=== PATIENT | female | born 2000 | race Caucasian/White ===

== ENCOUNTER 2024-06-27 12:38 | Emergency (ER) | payer OTHER, SELFPAY ==
[2024-06-27 12:40] VITALS: BP 153/93
[2024-06-27 13:31] LABS: Hematocrit 38.1 % (37.0-47.0); Hemoglobin 12.6 g/dL (12.0-16.0); Mean Corp Hgb Conc. 33.1 g/dL (33.0-37.0); Mean Corpuscular Hgb 27.2 pg (27.0-31.0); Mean Corpuscular Volume 82.3 fL (81.0-99.0); Mean Platelet Volume 8.5 fL (7.4-10.4); Platelet Count 281 10^3/uL (130-400); Red Blood Cell Count 4.63 10^6/uL (4.20-5.40); White Blood Cell Count 9.8 10^3/uL (4.8-10.8)
--- NOTE | 2024-06-27 13:31 | ED.GENMED ---
History of Present Illness
General
Chief Complaint: Crisis Evaluation
Source: patient
Exam Limitations: none
Time Seen by Provider: 06/27/24 12:56
Nursing documentation reviewed up to this point in time: agreed with
History of Present Illness
History of Present Illness:
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
Seen by mobile crisis sent here for evaluation and admission to psychiatric hospital has been admitted previously denies drugs or alcohol
Past History
Past History
ED Past Medical History: Psychiatric
ED Past Surgical History: Other (Top surgery)
Social History
Tobacco: Non-smoker
Alcohol: None
Drug: None
Personal: Single
Living: with family
Employment: Employed
Review of Systems
Review of Systems
All Other Systems: Not applicable
Psychiatric: Reports depression, anxiety and suicidal; Denies hallucinations
Phy Exam
Physical Exam
Physical Exam:
Physical Exam
General: no apparent distress, not acutely ill
Neck: No jaundice
Heart: s1/s2 regular rate and rhythm, no murmur. equal radial pulses.
Lungs: no acute respiratory distress. clear bilaterally
Neuro: alert and oriented. no focal neurological deficits
Skin: no rash
Psychiatric: Cooperative admits to suicidal ideation
Extremities: no edema.
Course
Orders/Labs/Results
Orders:
Orders
06/27/24 12:46
1:1 Observation - Suicide/ Violent Behavior As Directed
06/27/24 13:10
Crisis Consult Routine
Reason for Consult: 201
Test Result ONCE
06/27/24 13:23
Acetaminophen Urgent
Alcohol Urgent
Complete Blood Count/With Diff Urgent
Comprehensive Metabolic Panel Urgent
HCG, Serum Qualitative Screen Urgent
Salicylate Urgent
06/27/24 14:08
Urine Drug Abuse Screen Urgent
Date Specimen was Collected: 06/27/24
Time Specimen was Collected: 14:04
Abnormal Lab Results
06/27/24
13:23
Glucose 105 H mg/dl
(70-99)
ALT 42 H U/L
(0-35)
Total Protein 8.4 H g/dl
(6.3-8.2)
Salicylates < 1.0 L mg/dl
(2.0-20.0)
Acetaminophen < 10 L ug/ml
(10-30)
06/27/24 13:23
06/27/24 13:23
Vital Signs
Initial and Last Documented VS:
Initial Vital Signs
Temp Pulse Resp BP Pulse Ox
97.8 F 95 18 153/93 98
06/27/24 12:40 06/27/24 12:40 06/27/24 12:40 06/27/24 12:40 06/27/24 12:40
Last Documented Vital Signs
Temp Pulse Resp BP Pulse Ox
97.8 F 95 18 153/93 98
06/27/24 12:40 06/27/24 12:40 06/27/24 12:40 06/27/24 12:40 06/27/24 12:40
MDM/Problems Addressed
Differential Diagnosis Includes:
Suicidal ideation depression anxiety
MDM/Problems Addressed:
Suicidal ideation
Chronic conditions affecting care: Psychiatric illness
Acute Exacerbation and/or Progression of Chronic Illness: Psychiatric illness
*Pulse Oximetry
Patient hypoxic: no
*Critical Care Note
Total Time (30-74mins, 75-104mins- exclusive of procedures): Not Applicable
Update Note
Update Note:
2:20 PM labs noted patient medically clear for placement
ED Attending Note
-
Portions of this chart may have been created with voice recognition software.� Occasional wrong word or��sound alike� substitutions may have occurred due to the inherent limitations of voice recognition software.
Discharge Plan
Departure
Patient Disposition: Psych Facility
Date of Disposition: 06/27/24
Time of Disposition: 14:19
Patient with high blood pressure during this ER visit?: No
Condition: Good
Discharge Problem:
Suicidal ideation
Referrals:
Yoselin Brice PA [Family Provider] -
Interventions
Interventions:
*Risk Screen - Suicide Last Done: 06/27/24 12:40
*Neglect/Abuse Screening Last Done: 06/27/24 12:40
*ED COVID-19 Vaccine History Last Done: 06/27/24 12:40
Discharge Date and Time
Print Language: FAROESE
[2024-06-27 13:46] LABS: ALT (SGPT) 42 U/L (0-35); AST (SGOT) 33 U/L (14-36); Acetaminophen < 10 ug/ml (10-30); Albumin 4.9 g/dl (3.5-5.0); Alkaline Phosphatase 71 U/L (38-126); Blood Urea Nitrogen 11 mg/dl (7-17); Calcium 9.7 mg/dl (8.4-10.2); Carbon Dioxide 27 mmol/L (22-30); Chloride 101 mmol/L (98-107); Glucose 105 mg/dl (70-99); Potassium 4.1 mmol/L (3.5-5.1); Salicylate < 1.0 mg/dl (2.0-20.0); Sodium 137 mmol/L (135-145); Total Bilirubin 0.4 mg/dl (0.2-1.3); Total Protein 8.4 g/dl (6.3-8.2); eGFR > 60.00
[2024-06-27 13:49] LABS: HCG, Serum Qualitative Screen Negative
[2024-06-27 13:51] LABS: Alcohol None Detected
[2024-06-27 14:28] LABS: % Basophils 0.8 % (0-2); % Eosinophils 0.7 % (0-6); % Immature Granulocytes 0.8 % (0-0.5); % Lymphocytes 34.7 % (20.5-51.1); Absolute Basophils 0.1 10^3/uL (0-0.2); Absolute Eosinophils 0.1 10^3/uL (0-0.7); Absolute Immature Granulocytes 0.1 10^3/uL (0-0.05); Absolute Lymphocytes 3.4 10^3/uL (1.2-3.4); Absolute Monocytes 0.9 10^3/uL (0.1-0.6); Absolute Neutrophils 5.3 10^3/uL (1.4-6.5); Nucleated Red Blood Cells % 0 %
[2024-06-27 14:37] LABS: Amphetamines Negative (Negative); Barbiturates Negative (Negative); Benzodiazepines Negative (Negative); Buprenorphine Negative (Negative)
[2024-06-27 14:38] LABS: Cocaine Negative (Negative); Marijuana Negative (Negative); Methadone Negative (Negative); Methamphetamines Negative (Negative); Opiates Negative (Negative); Phencyclidine Negative (Negative); Tricyclic Antidepressants Negative (Negative)
== END 2024-06-27 18:38 ==
LOC: EMR 12:38
PROVIDERS: EMERGENCY PHYSICIAN Emergency Medicine; FAMILY PHYSICIAN Physician Assistant
DX: R45.851 Suicidal ideations (principal)
CPT/HCPCS: 99283; 80053; 80143; 80179; 80306; 82077; 84703; 85025